=== PATIENT | female | born 1990 | race Caucasian/White ===

== ENCOUNTER 2017-09-18 17:23 | Emergency (ER) | END 2017-09-18 19:26 | disposition home or self-care (01) ==

== ENCOUNTER 2018-09-27 15:34 | Emergency (ER) | payer OTHER ==
[~2018-09-27] VITALS: Ht 165.1 cm; Wt 123.0 kg
[~2018-09-27 15:34] MED LIST: HYDR-4011 PO; IBUP-1542 PO; PREN1TAB12 PO; TRAM50TA2 PO
[2018-09-27 15:42] VITALS: Ht 165.1 cm; Wt 123.0 kg
[2018-09-27] MEDS ORDERED: KETOROLAC 30 MG INJ IM STA (17:06)
[2018-09-27] MEDS ORDERED: ONDANSETRON (ODT) 4 MG TAB ODT STA (17:06)
--- NOTE | 2018-09-27 17:26 | ERD ---
ER Documentation Chief Complaint Chief Complaint DE X 5 DAYS HPI 27-year-old female is here with headache that she has had for over a week. Is gradual in onset and bilateral frontal radiates to the back of her head. It is a throbbing pulsating type pain. She is concerned because she states that in the past and her country she had a CT of her head which showed some sort of abnormality which she was not sure of she is concerned. She has occasional nausea and dizziness. No vomiting. No photosensitivity or changes to her vision. She is been taking Tylenol at home. She also states she would like a test because she is not sure if she is or not. ROS All systems reviewed and are negative except as per history of present illness. Medications Home Meds Active Scripts Hydrocodone/Acetaminophen ([place] 5-325 Tablet) 1 Each Tablet, 1 EACH PO BID PRN for MUSCLE SPASMS for 5 Days, #10 TAB Prov:JOE MENDEZ MD 09/18/17 Ibuprofen* (Motrin*) 600 Mg Tab, 600 MG PO Q8 PRN for PAIN AND OR ELEVATED TEMP, #15 TAB Prov:JOE MENDEZ MD 09/18/17 Tramadol HCl (Tramadol HCl) 50 Mg Tablet, 50 MG PO Q4 PRN for PAIN, #16 TAB Prov:JENNA MASON MD 10/27/15 Ibuprofen* (Motrin*) 600 Mg Tab, 600 MG PO Q6, #16 TAB Prov:JENNA MASON MD 10/27/15 Reported Medications Vit-Iron Fumarate-FA (Prenavite Tablet) 1 Tab Tablet, 1 TAB PO DAILY, TAB 04/28/14 Allergies Allergies: Coded Allergies: No Known Allergy (Unverified , 09/18/17) PMhx/Soc History of Surgery: No (OVARIAN SX) Anesthesia Reaction: No Hx Neurological Disorder: Yes (DIZZINESS ) Hx Respiratory Disorders: No Hx Cardiac Disorders: No Hx Psychiatric Problems: No Hx Miscellaneous Medical Probl: No Hx Alcohol Use: No Hx Substance Use: No Hx Tobacco Use: No Smoking Status: Never smoker FmHx Family History: No diabetes Physical Exam Vitals Vital Signs Date Temp Pulse Resp B/P (MAP) Pulse Ox O2 O2 Flow FiO2 Time Delivery Rate 09/27/18 99.2 91 18 142/74 97 15:42 (96) Physical Exam INITIAL VITAL SIGNS: Reviewed by me GENERAL: Awake, alert and oriented x 4, well appearing, nontoxic, speaking in full sentences. No acute distress HEAD: Atraumatic NECK: Supple. No masses. Full range of motion. No meningismus. No midline tenderness. EYES: EOMI. PERRL. RESPIRATORY: Clear to auscultation bilaterally. Symmetric chest wall rise. No w heezing or rales. No accessory muscle use. CV: Regular rate and rhythm. No murmurs, rubs, or gallops. : Deffered. Neuro: M/S: Alert and oriented Face: EOMI, face and pharynx with normal sensation and function Motor: Normal strength throughout Sensation: Normal sensation throughout Speech: Normal Cerebel: Normal coordination Normal gait Normal finger to nose DTR: 2+ and symmetric upper/lower extremities Results 24 hrs Laboratory Tests Test 09/27/18 17:21 POC Beta HCG, Qualitative NEGATIVE Current Medications Medications Dose Sig/Shell Start Time Status Last (Trade) Ordered Route PRN Stop Time Admin Dose Reason Admin Ketorolac 30 mg ONCE STAT 09/27/18 DC 09/27/18 Tromethamine IM 17:06 09/27/18 17:25 (Toradol) 17:08 Ondansetron 4 mg ONCE STAT 09/27/18 DC 09/27/18 HCl (Zofran ODT 17:06 09/27/18 17:25 Odt) 17:08 Procedures/MDM The differential diagnosis includes but is not limited to subdural hematoma, epidural hematoma, intracerebral hemorrhage, occult trauma, CVA, meningitis, encephalitis, hypertension, tension, migraine, cluster, cervical spine disease, and others. Neurological exam is normal. CT scan ordered and was negative. Patient discharged with Excedrin and Zofran. Patient counseled regarding my diagnostic impression and care plan. Prior to discharge all questions answered. Pt agrees with treatment plan and understands strict return precautions. Pt is instructed to follow up with primary care provider within 24-48 hours. Precautionary instructions provided including instructions to return to the ER if not improving or for any worsening or changing symptoms or concerns. Departure Diagnosis: Primary Impression: Headache Condition: Stable ASUNCION HO PA-C Sep 27, 2018 17:26
[2018-09-27] MEDS ORDERED: ASPI1TAB31 PO (18:55)
[2018-09-27] MEDS ORDERED: ONDA4TAB14 PO (18:55)
[2018-09-27 19:03] VITALS: BP 119/68; PULSE 78; RESP 18
== END 2018-09-27 19:05 | disposition home or self-care (01) ==
LOC: FTE 15:34
DX: R51 Headache (principal); R11.0 Nausea
CPT/HCPCS: 70450; 81025; 96372; J1885; Z7502; Z7610

== ENCOUNTER 2019-02-18 23:38 | Emergency (ER) | payer OTHER ==
[~2019-02-18] VITALS: Ht 162.6 cm; Wt 122.6 kg
[~2019-02-18 23:38] MED LIST changes: +ASPI1TAB31 PO; +CEPH-443 PO; +ONDA4TAB14 PO; +SULF1TAB31 PO
[2019-02-18 23:56] VITALS: Ht 162.6 cm; Wt 122.6 kg
[2019-02-19 01:14] VITALS: BP 126/82; PULSE 82; RESP 16
--- NOTE | 2019-02-19 03:42 | ERD ---
ER Documentation Chief Complaint Chief Complaint SUTURES ON LEFT FOOT HAVE OPENED, WOUND IS DRY & NON REDDENED HPI This is a 28-year-old female with diabetes presents to the ED complaining of an open wound to her left dorsal foot. Patient states she had a cyst removed 10 days ago surgically. She states she was scheduled to have her sutures removed on February 27, 2019. She states the sutures became loose today and she removed all 4 of them by herself. She has since noticed some clear white discharge from the wound with mild pain on palpation, and increased swelling to the dorsal foot. She denies any fevers. Denies any chills. Denies any numbness or tingling. No new injuries. No other complaints. Tetanus is up-to-date. ROS All systems reviewed and are negative except as per history of present illness. Medications Home Meds Active Scripts Cephalexin* (Keflex*) 500 Mg Capsule, 500 MG PO QID for 5 Days, CAP Prov:ELLENIGRIKIANSEJAL PA-C 02/19/19 Sulfamethoxazole/Trimethoprim* (Bactrim Ds* Tablet) 1 Each Tablet, 1 TAB PO BID, #14 TAB Prov:SEJAL RICHMOND PA-C 02/19/19 Ondansetron (Ondansetron Odt) 4 Mg Tab.rapdis, 4 MG PO Q6H PRN for NAUSEA AND/OR VOMITING, #10 TAB Prov:ASUNCION HO PA-C 09/27/18 Aspirin/Acetaminophen/Caffeine (Excedrin Migraine Caplet) 1 Each Tablet, 1 EACH PO Q6, #30 TAB Prov:ASUNCION HO PA-C 09/27/18 Hydrocodone/Acetaminophen ([place] 5-325 Tablet) 1 Each Tablet, 1 EACH PO BID PRN for MUSCLE SPASMS for 5 Days, #10 TAB Prov:JOE MENDEZ MD 09/18/17 Ibuprofen* (Motrin*) 600 Mg Tab, 600 MG PO Q8 PRN for PAIN AND OR ELEVATED TEMP, #15 TAB Prov:JOE MENDEZ MD 09/18/17 Tramadol HCl (Tramadol HCl) 50 Mg Tablet, 50 MG PO Q4 PRN for PAIN, #16 TAB Prov:JENNA MASON MD 10/27/15 Ibuprofen* (Motrin*) 600 Mg Tab, 600 MG PO Q6, #16 TAB Prov:JENNA MASON MD 10/27/15 Reported Medications Vit-Iron Fumarate-FA (Prenavite Tablet) 1 Tab Tablet, 1 TAB PO DAILY, TAB 04/28/14 Allergies Allergies: Coded Allergies: No Known Allergy (Unverified , 09/18/17) PMhx/Soc History of Surgery: No (OVARIAN SX) Anesthesia Reaction: No Hx Neurological Disorder: Yes (DIZZINESS ) Hx Respiratory Disorders: No Hx Cardiac Disorders: No Hx Psychiatric Problems: No Hx Miscellaneous Medical Probl: No Hx Alcohol Use: No Hx Substance Use: No Hx Tobacco Use: No Smoking Status: Never smoker Physical Exam Vitals Vital Signs Date Temp Pulse Resp B/P (MAP) Pulse Ox O2 O2 Flow FiO2 Time Delivery Rate 02/19/19 98.2 82 16 126/82 98 Room Air 01:14 (97) 02/18/19 98.6 92 16 118/66 98 23:56 (83) Physical Exam Const: No acute distress Head: Atraumatic Eyes: Normal Conjunctiva ENT: Normal External Ears, Nose and Mouth. Neck: Full range of motion. No meningismus. Resp: Clear to auscultation bilaterally Cardio: Regular rate and rhythm, no murmurs Abd: Soft, non tender, non distended. Normal bowel sounds Skin: + Approximately 1 cm vertical minimally gaping wound to the dorsal aspect of the left foot between third and fourth digits with mild pain on palpation. No sutures appreciated. Small amount of clear white discharge. Soft tissue swelling of the dorsal foot. Cap refill less than 2 seconds. DP/PT pulses intact. Full range of motion of the toes, ankle and foot. Back: No midline or flank tenderness Ext: No cyanosis, or edema Neur: Awake and alert Psych: Normal Mood and Affect Procedures/MDM MEDICAL DECISION MAKIN-year-old female with history of diabetes with an open wound to her left dorsal foot. Wound was closed with Steri-Strips. There is no significant amount of significant infection on exam however given patient's history of diabetes, I will treat prophylactically with outpatient antibiotics. She is afebrile, nontoxic-appearing. She is neurovascularly intact on physical exam without evidence of neurovascular injury, tendon injury, or foreign body. I have low suspicion for osteomyelitis or necrotizing fasciitis. She was told to follow-up with her primary care provider on February 27 as scheduled. Strict return precautions were discussed. PRESCRIPTIONS: Bactrim, Keflex SPECIALIST FOLLOW UP RECOMMENDED: None Patient has been advised to follow up with primary care in 1-2 days. Departure Diagnosis: Primary Impression: Open wound Condition: Stable Patient Instructions: Wound Care Referrals: [facility] YOU HAVE RECEIVED A MEDICAL SCREENING EXAM AND THE RESULTS INDICATE THAT YOU DO NOT HAVE A CONDITION THAT REQUIRES URGENT TREATMENT IN THE EMERGENCY DEPARTMENT. FURTHER EVALUATION AND TREATMENT OF YOUR CONDITION CAN WAIT UNTIL YOU ARE SEEN IN YOUR DOCTORS OFFICE WITHIN THE NEXT 1-2 DAYS. IT IS YOUR RESPONSIBILITY TO MAKE AN APPOINTMENT FOR FOLOW-UP CARE. IF YOU HAVE A PRIMARY DOCTOR --you should call your primary doctor and schedule an appointment IF YOU DO NOT HAVE A PRIMARY DOCTOR YOU CAN CALL OUR PHYSICIAN REFERRAL HOTLINE AT IF YOU CAN NOT AFFORD TO SEE A PHYSICIAN YOU CAN CHOSE FROM THE FOLLOWING [facility] [address] [facility]. [facility] [address] [facility]. [facility] [address] [facility] [facility] [address] [facility] [facility] [address] [facility]. [facility] [address] [facility] [facility] YOU HAVE RECEIVED A MEDICAL SCREENING EXAM AND THE RESULTS INDICATE THAT YOU DO NOT HAVE A CONDITION THAT REQUIRES URGENT TREATMENT IN THE EMERGENCY DEPARTMENT. FURTHER EVALUATION AND TREATMENT OF YOUR CONDITION CAN WAIT UNTIL YOU ARE SEEN IN YOUR DOCTORS OFFICE WITHIN THE NEXT 1-2 DAYS. IT IS YOUR RESPONSIBILITY TO MAKE AN APPOINTMENT FOR FOLOW-UP CARE. IF YOU HAVE A PRIMARY DOCTOR --you should call your primary doctor and schedule and appointment IF YOU DO NOT HAVE A PRIMARY DOCTOR YOU CAN CALL OUR PHYSICIAN REFERRAL HOTLINE AT . IF YOU CAN NOT AFFORD TO SEE A PHYSICIAN YOU CAN CHOSE FROM THE FOLLOWING [facility] IN[facility]: [facility] [address] [place] [address] [facility] [address] [place] [address] [facility] [address] [place] [address] Additional Instructions: Take the entire course of antibiotics. Keep your appointment for your follow-up on February 27. Return here sooner if you notice increasing pain, fevers, discharge or any other concerns. SEJAL RICHMOND PA-C Feb 19, 2019 03:42
== END 2019-02-19 01:16 | disposition home or self-care (01) ==
LOC: FTE 23:38
DX: S91.302A Unspecified open wound, left foot, initial encounter (principal); E11.9 Type 2 diabetes mellitus without complications; X58.XXXA Exposure to other specified factors, initial encounter; Y92.9 Unspecified place or not applicable; Z79.82 Long term (current) use of aspirin
CPT/HCPCS: 99283